=== PATIENT | female | born 1955 | race African-American/Black ===

== ENCOUNTER 2016-06-14 11:54 | Inpatient (IN) | payer MEDICARE, MEDICAID ==
[~2016-06-14] VITALS: Ht 160 cm; Wt 74.8 kg
[~2016-06-14 11:54] MED LIST: ACET-868 PO; ALLO100T PO; AMIN30LI2 PO; AMLO5TAB2 PO; ASPI-991 PO; ATOR40TA PO; BISA10SU8 RC; CARV25TA2 PO; CHOL100044 PO; CINA30TA PO; FOLI0.8T2 PO; GABA-532 PO; HYDR-4076 PO; HYDR-548 PO; HYDR200T4 PO; LACT10SO6 PO; MAGN400O6 PO; MYCO250C8 PO; NA P133E RC; PANT40TA4 PO; PRED5TAB PO; QUET25TA PO; VALA500T35 PO; VALS40TA11 PO
[2016-06-14 12:58] LABS: ANION GAP 18 (5-14); CALCIUM, SERUM 10.4 mg/dL (8.5-10.1); CARBON DIOXIDE 25 mmol/L (21-32); CHLORIDE 97 mmol/L (98-107); CREATININE 3.7 mg/dL (0.6-1.3); GFR 15 mL/min (>60); GLUCOSE 97 mg/dL (74-106); SODIUM SERUM 136 mmol/L (136-145); UREA NITROGEN, BLOOD 22 mg/dL (7-18)
[2016-06-14 13:02] LABS: INR 1.09 (0.87-1.13); PROTHROMBIN TIME 11.4 SECS (9.5-12.7)
[2016-06-14 13:03] LABS: ALANINE AMINOTRANSFERASE 21 U/L (12-78); ALBUMIN 3.5 g/dL (3.4-5.0); ASPARTATE AMINOTRANSFERASE 19 U/L (15-37); BASOPHILS # (AUTO) 0.1 /CMM (0.0-0.2); BASOPHILS % (AUTO) 0.6 % (0.0-2.0); BILIRUBIN,DIRECT 0.2 mg/dL (0.0-0.2); BILIRUBIN,TOTAL 0.6 mg/dL (0.2-1.0); DIFF TOTAL % 100 %; EOSINOPHILS % (AUTO) 0.2 % (0.0-6.0); HEMATOCRIT 37 % (33-45); HEMOGLOBIN 11.9 g/dL (11.5-14.8); INDIRECT BILIRUBIN 0.4 mg/dL (0.0-1.1); LYMPHOCYTES # (AUTO) 0.3 /CMM (0.8-4.8); LYMPHOCYTES % (AUTO) 2.3 % (20.0-44.0); MEAN CORPUSCULAR HEMOGLOBIN 26 PG (26.0-33.0); MEAN CORPUSCULAR HGB CONC 32 g/dl (31.0-36.0); MEAN CORPUSCULAR VOLUME 81 fL (82-100); MONOCYTES # (AUTO) 0.4 /CMM (0.1-1.30); NEUTROPHILS # (AUTO) 11.4 /CMM (1.8-8.9); NEUTROPHILS % (AUTO) 93.9 % (43.0-81.0); PLATELET COUNT (AUTO) 244 /CMM (150-450); RED BLOOD CELL COUNT(AUTO) 4.64 MIL/uL (4.0-5.2); TOTAL PROTEIN, SERUM 9.8 g/dL (6.4-8.2); WHITE BLOOD COUNT (AUTO) 12.2 K/uL (4.3-11.0)
[2016-06-14 13:05] LABS: TROPONIN I < 0.017 ng/mL (0.00-0.056)
[2016-06-14] MEDS ORDERED: IV NS 0.9% 1,000 ML ONE (13:20)
[2016-06-14] MEDS ORDERED: IV SET PRIMARY 1 EA INFUS.SET MC ONE (13:20)
[2016-06-14] MEDS ORDERED: IV NS 0.9% 1,000 ML BAG IV ONE (13:30)
[2016-06-14] MEDS ORDERED: CEFTRIAXONE 1GM BAG (ER ONLY) 50 ML IV ONE ×2 (13:30→13:46)
[2016-06-14 13:37] LABS: LACTIC ACID 2.1 mmol/L (0.4-2.0)
[2016-06-14] MEDS ORDERED: HYDR-552 PO (13:39)
[2016-06-14] MEDS ORDERED: OMEG1CAP PO (13:39)
[2016-06-14] MEDS ORDERED: MULT1TAB11 PO (13:39)
[2016-06-14] MEDS ORDERED: DIVA125T2 PO (13:39)
[2016-06-14] MEDS ORDERED: FERR-58 PO (13:39)
[2016-06-14] MEDS ORDERED: POLY119P2 PO (13:39)
[2016-06-14] MEDS ORDERED: NIFE30TA2 PO (13:39)
[2016-06-14] MEDS ORDERED: SEVE800T8 PO (13:39)
[2016-06-14] MEDS ORDERED: IV SET PRIMARY PUMP SET 1 EA INFUS.SET MC ONE ×3 (13:46→16:39)
[2016-06-14] MEDS ORDERED: AZITHROMYCIN 500 MG in IV D5W 250 ML IV ONE (14:00)
[2016-06-14 14:05] LABS: *LACTIC ACID REFLEX FLAG YES
[2016-06-14 15:00] VITALS: BP 96/59
[2016-06-14] MEDS ORDERED: Z GUARD REMEDY 2 OZ OINT TP PRN ×2 (15:30→18:30)
[2016-06-14 16:00] VITALS: BP_SYST 96; BP_DIAS 55; BP_DIAS 59
[2016-06-14] MEDS ORDERED: IV NS 0.9% 500 ML IV ONE (16:30)
[2016-06-14] MEDS: MORPHINE SULFATE INJ 2 MG/ML DISP.SYRIN IV PRN (18:23)
[2016-06-14] MEDS ORDERED: ONDANSETRON HCL/PF 4 MG/2 ML VIAL IVP PRN (18:30)
[2016-06-14] MEDS ORDERED: MAG HYDROX/AL HYDROX/SIMETH 30 ML UDC PO PRN (18:30)
[2016-06-14] MEDS ORDERED: HYDROCODONE/APAP 5/325MG 1 EACH TABLET PO PRN (18:30)
[2016-06-14] MEDS ORDERED: MAGNESIUM HYDROXIDE 30 ML UDC PO PRN (18:30)
[2016-06-14] MEDS ORDERED: ACETAMINOPHEN 325 MG TABLET PO PRN ×2 (18:30)
[2016-06-14] MEDS ORDERED: HYDROCODONE/APAP 5/325MG 1 EACH TABLET PO SCH (18:30)
[2016-06-14] MEDS ORDERED: ZOLPIDEM TARTRATE 5 MG TABLET PO PRN (18:30)
[2016-06-14] MEDS: CEFTRIAXONE 1 G in IV D5W 50 ML IV SCH (18:30)
[2016-06-14 20:00] VITALS: BP 114/68
[2016-06-14] MEDS ORDERED: POLYETHYLENE GLYCOL 3350 17 GM POWD.PACK PO PRN (20:30)
[2016-06-14] MEDS: HYDROCODONE/APAP 5/325MG 1 EACH TABLET PO PRN (20:46)
[2016-06-14] MEDS: VALSARTAN 40 MG TABLET PO SCH (20:49)
[2016-06-14] MEDS: CARVEDILOL 12.5 MG TABLET PO SCH (20:50)
[2016-06-14] MEDS ORDERED: ATORVASTATIN 40 MG TABLET PO SCH (22:00)
[2016-06-15] VITALS: BP 115/59
[2016-06-15 04:00] VITALS: BP 136/57
[2016-06-15 07:40] LABS: HEMATOCRIT 30 % (33-45); HEMOGLOBIN 9.2 g/dL (11.5-14.8); MEAN CORPUSCULAR HEMOGLOBIN 25 PG (26.0-33.0); MEAN CORPUSCULAR HGB CONC 30 g/dl (31.0-36.0); MEAN CORPUSCULAR VOLUME 83 fL (82-100); PLATELET COUNT (AUTO) 212 /CMM (150-450); RED BLOOD CELL COUNT(AUTO) 3.65 MIL/uL (4.0-5.2); WHITE BLOOD COUNT (AUTO) 17.4 K/uL (4.3-11.0)
[2016-06-15 08:00] VITALS: BP 96/45
[2016-06-15] MEDS: CHOLECALCIFEROL 1,000 UNIT TABLET (VIT D3) PO SCH (08:08)
[2016-06-15] MEDS: predniSONE 5 MG TABLET PO SCH (08:09)
[2016-06-15] MEDS: VALSARTAN 40 MG TABLET PO SCH ×2 (08:09→20:58)
[2016-06-15] MEDS: FERROUS SULFATE (325 MG) 325 MG/TAB TABLET PO SCH (08:09)
[2016-06-15] MEDS: GABAPENTIN 100 MG CAPSULE PO SCH ×2 (08:09→17:11)
[2016-06-15] MEDS: DIVALPROEX SODIUM 125 MG TABLET.DR PO SCH ×2 (08:09→17:12)
[2016-06-15] MEDS: MYCOPHENOLATE MOFETIL 250 MG CAPSULE PO SCH ×2 (08:09→17:10)
[2016-06-15] MEDS: SEVELAMER CARBONATE 800 MG TABLET PO SCH ×3 (08:09→17:08)
[2016-06-15] MEDS: ASPIRIN EC 81 MG TABLET.DR PO SCH (08:09)
[2016-06-15] MEDS: CINACALCET HCL 30 MG TABLET PO SCH (08:09)
[2016-06-15] MEDS: CARVEDILOL 12.5 MG TABLET PO SCH ×2 (08:10→20:58)
[2016-06-15] MEDS: HYDROXYCHLOROQUINE 200 MG TABLET PO SCH (08:10)
[2016-06-15] MEDS: hydrALAZINE HCL 25 MG TABLET PO SCH (08:10)
[2016-06-15] MEDS: AMLODIPINE BESYLATE 5 MG TABLET PO SCH (08:10)
[2016-06-15] MEDS: PANTOPRAZOLE 40 MG TABLET.DR PO SCH (08:10)
[2016-06-15] MEDS: MULTIVITAMINS W-MINERALS 1 TAB TABLET PO SCH (08:10)
[2016-06-15] MEDS: HYDROCODONE/APAP 5/325MG 1 EACH TABLET PO PRN ×2 (08:11→14:32)
[2016-06-15] MEDS ORDERED: NIFEdipine XL (30MG) 30 MG TAB PO SCH (09:00)
[2016-06-15] MEDS ORDERED: Medication Not On Formulary EA (Omega-3 Fatty Acids/Fish Oil (Fish Oil 1,000 Mg Capsule) PO SCH (09:00)
[2016-06-15 09:31] LABS: CALCIUM, SERUM 9.4 mg/dL (8.5-10.1); CREATININE 5.3 mg/dL (0.6-1.3); POTASSIUM 5.2 mmol/L (3.5-5.1)
[2016-06-15] MEDS ORDERED: Z GUARD REMEDY 2 OZ OINT TP PRN (10:00)
[2016-06-15 10:31] LABS: ANISOCYTOSIS 1+; BAND % (MANUAL) 8 % (0.0-5.0); EOSINOPHILS % (MANUAL) 1 % (0-4); HYPOCHROMASIA 2+; LYMPHOCYTES % (MANUAL) 10 % (16-48); PLATELET ESTIMATE ADEQUATE
[2016-06-15 10:32] LABS: SCHISTOCYTES 1+
[2016-06-15 12:00] VITALS: BP 96/51
[2016-06-15 12:55] LABS: TROPONIN I 0.081 ng/mL (0.00-0.056)
[2016-06-15 13:39] LABS: THYROID STIMULATING HORMONE 0.804 uIU/mL (0.358-3.74)
[2016-06-15] MEDS ORDERED: SECONDARY IV SET 1 EA INFUS.SET MC ONE ×2 (15:30→17:07)
[2016-06-15 16:00] VITALS: BP 81/46
[2016-06-15 16:32] LABS: LACTIC ACID 0.6 mmol/L (0.4-2.0)
[2016-06-15 16:46] LABS: TROPONIN I 0.103 ng/mL (0.00-0.056)
[2016-06-15] MEDS: CEFTRIAXONE 1 G in IV D5W 50 ML IV SCH (17:10)
[2016-06-15] MEDS: Z GUARD REMEDY 2 OZ OINT TP SCH (17:11)
[2016-06-15] MEDS: ALBUMIN 25% 25 GM in PREMIX 1 EA IV PRN (17:24)
[2016-06-15] MEDS ORDERED: AZITHROMYCIN 500 MG in IV D5W 250 ML IV SCH (18:30)
[2016-06-15] MEDS ORDERED: IV NS 0.9% 250 ML IV ONE (18:32)
[2016-06-15 20:00] VITALS: BP 99/50
[2016-06-15] MEDS: HEPARIN SODIUM, PORCINE 5000 UNITS/1 ML VIAL SQ SCH (20:51)
[2016-06-16] VITALS: BP 118/59
[2016-06-16 04:00] VITALS: BP 118/33
[2016-06-16 07:52] LABS: HEMATOCRIT 26 % (33-45); HEMOGLOBIN 8.1 g/dL (11.5-14.8); MEAN CORPUSCULAR HEMOGLOBIN 25 PG (26.0-33.0); MEAN CORPUSCULAR HGB CONC 31 g/dl (31.0-36.0); MEAN CORPUSCULAR VOLUME 83 fL (82-100); PLATELET COUNT (AUTO) 184 /CMM (150-450); RED BLOOD CELL COUNT(AUTO) 3.18 MIL/uL (4.0-5.2); WHITE BLOOD COUNT (AUTO) 13.3 K/uL (4.3-11.0)
[2016-06-16 07:53] LABS: ALBUMIN 3.2 g/dL (3.4-5.0); BILIRUBIN,TOTAL 0.5 mg/dL (0.2-1.0); CALCIUM, SERUM 9.1 mg/dL (8.5-10.1); CREATININE 4.2 mg/dL (0.6-1.3); PHOSPHORUS 4.2 mg/dL (2.5-4.9)
[2016-06-16 08:00] VITALS: BP 110/59
[2016-06-16] MEDS: hydrALAZINE HCL 25 MG TABLET PO SCH (08:37)
[2016-06-16] MEDS: VALSARTAN 40 MG TABLET PO SCH ×2 (09:00→20:49)
[2016-06-16] MEDS: AMLODIPINE BESYLATE 5 MG TABLET PO SCH (09:00)
[2016-06-16] MEDS: CARVEDILOL 12.5 MG TABLET PO SCH ×2 (09:00→20:49)
[2016-06-16] MEDS ORDERED: SECONDARY IV SET 1 EA INFUS.SET MC ONE (09:07)
[2016-06-16] MEDS: CHOLECALCIFEROL 1,000 UNIT TABLET (VIT D3) PO SCH (09:11)
[2016-06-16] MEDS: MULTIVITAMINS W-MINERALS 1 TAB TABLET PO SCH (09:11)
[2016-06-16] MEDS: predniSONE 5 MG TABLET PO SCH (09:12)
[2016-06-16] MEDS: FERROUS SULFATE (325 MG) 325 MG/TAB TABLET PO SCH (09:12)
[2016-06-16] MEDS: ASPIRIN EC 81 MG TABLET.DR PO SCH (09:12)
[2016-06-16] MEDS: CINACALCET HCL 30 MG TABLET PO SCH (09:12)
[2016-06-16] MEDS: PANTOPRAZOLE 40 MG TABLET.DR PO SCH (09:13)
[2016-06-16] MEDS: DIVALPROEX SODIUM 125 MG TABLET.DR PO SCH ×2 (09:13→17:14)
[2016-06-16] MEDS: MYCOPHENOLATE MOFETIL 250 MG CAPSULE PO SCH ×2 (09:13→17:14)
[2016-06-16] MEDS: GABAPENTIN 100 MG CAPSULE PO SCH ×2 (09:13→17:13)
[2016-06-16] MEDS: SEVELAMER CARBONATE 800 MG TABLET PO SCH ×3 (09:13→17:13)
[2016-06-16] MEDS: HYDROXYCHLOROQUINE 200 MG TABLET PO SCH (09:13)
[2016-06-16] MEDS: PIPERACILLIN /TAZOBACTAM 2.25 G in IV D5W 50 ML IV SCH ×2 (09:14→17:13)
[2016-06-16] MEDS: Z GUARD REMEDY 2 OZ OINT TP SCH ×2 (09:14→17:15)
[2016-06-16] MEDS: HEPARIN SODIUM, PORCINE 5000 UNITS/1 ML VIAL SQ SCH ×2 (09:16→21:23)
[2016-06-16 10:09] LABS: BAND % (MANUAL) 3 % (0.0-5.0); EOSINOPHILS % (MANUAL) 1 % (0-4); LYMPHOCYTES % (MANUAL) 7 % (16-48)
[2016-06-16 10:10] LABS: ANISOCYTOSIS 2+; HYPOCHROMASIA 2+
[2016-06-16 10:11] LABS: PLATELET ESTIMATE ADEQUATE
[2016-06-16] MEDS: HYDROCODONE/APAP 5/325MG 1 EACH TABLET PO PRN ×2 (13:12→21:24)
[2016-06-16 16:00] VITALS: BP 102/61
[2016-06-16] MEDS ORDERED: FEE PK DOSING 1 MIN EA MC ONE (16:38)
[2016-06-16] MEDS ORDERED: VANCOMYCIN 1 GM in IV D5W 250 ML IV PRN (17:00)
[2016-06-16 20:00] VITALS: BP 104/30
[2016-06-17] MEDS: PIPERACILLIN /TAZOBACTAM 2.25 G in IV D5W 50 ML IV SCH ×3 (00:27→17:38)
[2016-06-17] MEDS ORDERED: GUAIFENESIN/D-METHORPHAN HB 5 ML UDC ONE ×2 (00:44→06:48)
[2016-06-17] MEDS: GUAIFENESIN/D-METHORPHAN HB 5 ML UDC PO PRN ×3 (00:50→17:50)
[2016-06-17] MEDS: HYDROCODONE/APAP 5/325MG 1 EACH TABLET PO PRN ×4 (01:29→17:53)
[2016-06-17 04:00] VITALS: BP 98/70
[2016-06-17 08:00] VITALS: BP_SYST 101; BP_DIAS 37; BP_DIAS 97
[2016-06-17] MEDS: FERROUS SULFATE (325 MG) 325 MG/TAB TABLET PO SCH (08:08)
[2016-06-17] MEDS: MYCOPHENOLATE MOFETIL 250 MG CAPSULE PO SCH ×2 (08:09→17:37)
[2016-06-17] MEDS: CINACALCET HCL 30 MG TABLET PO SCH (08:09)
[2016-06-17] MEDS: HYDROXYCHLOROQUINE 200 MG TABLET PO SCH (08:09)
[2016-06-17] MEDS: MULTIVITAMINS W-MINERALS 1 TAB TABLET PO SCH (08:09)
[2016-06-17] MEDS: DIVALPROEX SODIUM 125 MG TABLET.DR PO SCH ×2 (08:10→17:37)
[2016-06-17] MEDS: ASPIRIN EC 81 MG TABLET.DR PO SCH (08:10)
[2016-06-17] MEDS: PANTOPRAZOLE 40 MG TABLET.DR PO SCH (08:10)
[2016-06-17] MEDS: SEVELAMER CARBONATE 800 MG TABLET PO SCH ×3 (08:10→17:37)
[2016-06-17] MEDS: predniSONE 5 MG TABLET PO SCH (08:10)
[2016-06-17] MEDS: GABAPENTIN 100 MG CAPSULE PO SCH ×2 (08:10→17:37)
[2016-06-17] MEDS: CHOLECALCIFEROL 1,000 UNIT TABLET (VIT D3) PO SCH (08:11)
[2016-06-17] MEDS: hydrALAZINE HCL 25 MG TABLET PO SCH (08:13)
[2016-06-17] MEDS: CARVEDILOL 12.5 MG TABLET PO SCH ×2 (08:14→20:48)
[2016-06-17] MEDS: AMLODIPINE BESYLATE 5 MG TABLET PO SCH (08:14)
[2016-06-17] MEDS: VALSARTAN 40 MG TABLET PO SCH ×2 (08:14→20:49)
[2016-06-17] MEDS: Z GUARD REMEDY 2 OZ OINT TP SCH ×2 (08:15→17:39)
[2016-06-17] MEDS: HEPARIN SODIUM, PORCINE 5000 UNITS/1 ML VIAL SQ SCH ×2 (08:32→21:24)
[2016-06-17 12:00] VITALS: BP_SYST 112; BP_DIAS 31; BP_DIAS 39
[2016-06-17] MEDS: MORPHINE SULFATE INJ 2 MG/ML DISP.SYRIN IV PRN (13:45)
[2016-06-17 16:00] VITALS: BP_SYST 103; BP_SYST 128; BP_DIAS 39; BP_DIAS 72
[2016-06-17] MEDS ORDERED: MORPHINE SULFATE INJ 2 MG/ML DISP.SYRIN IV PRN (18:30)
[2016-06-17 19:11] LABS: BASOPHILS # (AUTO) 0.1 /CMM (0.0-0.2); BASOPHILS % (AUTO) 1.1 % (0.0-2.0); DIFF TOTAL % 100 %; EOSINOPHILS # (AUTO) 0.2 /CMM (0.0-0.7); EOSINOPHILS % (AUTO) 2.6 % (0.0-6.0); HEMATOCRIT 26 % (33-45); LYMPHOCYTES # (AUTO) 0.5 /CMM (0.8-4.8); LYMPHOCYTES % (AUTO) 6.1 % (20.0-44.0); MEAN CORPUSCULAR HEMOGLOBIN 26 PG (26.0-33.0); MEAN CORPUSCULAR HGB CONC 32 g/dl (31.0-36.0); MEAN CORPUSCULAR VOLUME 82 fL (82-100); MONOCYTES # (AUTO) 0.3 /CMM (0.1-1.30); MONOCYTES % (AUTO) 3.2 % (2.0-12.0); NEUTROPHILS # (AUTO) 7.2 /CMM (1.8-8.9); PLATELET COUNT (AUTO) 168 /CMM (150-450); RED BLOOD CELL COUNT(AUTO) 3.13 MIL/uL (4.0-5.2); WHITE BLOOD COUNT (AUTO) 8.3 K/uL (4.3-11.0)
[2016-06-17 19:18] LABS: CALCIUM, SERUM 8.5 mg/dL (8.5-10.1); CREATININE 7.4 mg/dL (0.6-1.3); PHOSPHORUS 5.5 mg/dL (2.5-4.9); POTASSIUM 5.9 mmol/L (3.5-5.1)
[2016-06-17 20:00] VITALS: BP 104/59
[2016-06-18] MEDS: PIPERACILLIN /TAZOBACTAM 2.25 G in IV D5W 50 ML IV SCH ×3 (01:40→16:13)
[2016-06-18 04:00] VITALS: BP 105/56
[2016-06-18] MEDS ORDERED: VANCOMYCIN 500 MG in IV D5W 100 ML IV PRN (06:00)
[2016-06-18 07:42] LABS: HEMATOCRIT 30 % (33-45); HEMOGLOBIN 9.2 g/dL (11.5-14.8); MEAN CORPUSCULAR HEMOGLOBIN 26 PG (26.0-33.0); MEAN CORPUSCULAR HGB CONC 31 g/dl (31.0-36.0); MEAN CORPUSCULAR VOLUME 82 fL (82-100); PLATELET COUNT (AUTO) 174 /CMM (150-450); WHITE BLOOD COUNT (AUTO) 9.1 K/uL (4.3-11.0)
[2016-06-18 07:59] LABS: CREATININE 5.8 mg/dL (0.6-1.3); PHOSPHORUS 4.2 mg/dL (2.5-4.9); POTASSIUM 4.7 mmol/L (3.5-5.1)
[2016-06-18 08:00] VITALS: BP_SYST 140; BP_SYST 143; BP_DIAS 93
[2016-06-18] MEDS: PANTOPRAZOLE 40 MG TABLET.DR PO SCH (08:01)
[2016-06-18] MEDS: predniSONE 5 MG TABLET PO SCH (08:01)
[2016-06-18] MEDS: MYCOPHENOLATE MOFETIL 250 MG CAPSULE PO SCH ×2 (08:02→16:13)
[2016-06-18] MEDS: MULTIVITAMINS W-MINERALS 1 TAB TABLET PO SCH (08:02)
[2016-06-18] MEDS: GABAPENTIN 100 MG CAPSULE PO SCH ×2 (08:02→16:13)
[2016-06-18] MEDS: CINACALCET HCL 30 MG TABLET PO SCH (08:02)
[2016-06-18] MEDS: FERROUS SULFATE (325 MG) 325 MG/TAB TABLET PO SCH (08:02)
[2016-06-18] MEDS: HYDROXYCHLOROQUINE 200 MG TABLET PO SCH (08:02)
[2016-06-18] MEDS: DIVALPROEX SODIUM 125 MG TABLET.DR PO SCH ×2 (08:02→16:13)
[2016-06-18] MEDS: CHOLECALCIFEROL 1,000 UNIT TABLET (VIT D3) PO SCH (08:02)
[2016-06-18] MEDS: ASPIRIN EC 81 MG TABLET.DR PO SCH (08:02)
[2016-06-18] MEDS: SEVELAMER CARBONATE 800 MG TABLET PO SCH ×3 (08:02→17:50)
[2016-06-18] MEDS: HYDROCODONE/APAP 5/325MG 1 EACH TABLET PO PRN ×3 (08:03→17:50)
[2016-06-18] MEDS: VALSARTAN 40 MG TABLET PO SCH (08:04)
[2016-06-18] MEDS: AMLODIPINE BESYLATE 5 MG TABLET PO SCH (08:04)
[2016-06-18] MEDS: hydrALAZINE HCL 25 MG TABLET PO SCH (08:04)
[2016-06-18] MEDS: CARVEDILOL 12.5 MG TABLET PO SCH (08:05)
[2016-06-18] MEDS: Z GUARD REMEDY 2 OZ OINT TP SCH ×2 (08:06→16:16)
[2016-06-18] MEDS: HEPARIN SODIUM, PORCINE 5000 UNITS/1 ML VIAL SQ SCH (08:25)
[2016-06-18 09:43] LABS: EOSINOPHILS % (MANUAL) 5 % (0-4); LYMPHOCYTES % (MANUAL) 10 % (16-48)
[2016-06-18 09:44] LABS: ANISOCYTOSIS 1+; HYPOCHROMASIA 1+; PLATELET ESTIMATE ADEQUATE
[2016-06-18] MEDS ORDERED: IV SET PRIMARY PUMP SET 1 EA INFUS.SET MC ONE (11:48)
[2016-06-18] MEDS ORDERED: SECONDARY IV SET 1 EA INFUS.SET MC ONE (11:48)
[2016-06-18] MEDS ORDERED: IV NS 0.9% 250 ML IV ONE (11:48)
[2016-06-18] MEDS: GUAIFENESIN/D-METHORPHAN HB 5 ML UDC PO PRN (12:49)
[2016-06-18] MEDS ORDERED: Heparin Sodium,Porcine SQ (15:51)
[2016-06-18] MEDS ORDERED: PIPE2.257 IV (15:58)
[2016-06-18 16:00] VITALS: BP 101/80
== END 2016-06-18 19:08 | DRG 871 ==
LOC: ER 11:56 → TELE1 13:45 → MEDSG1 06-15 12:54
PROVIDERS: ADMIT Family Medicine; ATTEND Family Medicine
PROC: 5A1D60Z (ICD-10-PCS; principal; 2016-06-15)
DX: A41.9 Sepsis, unspecified organism (principal); N18.6 End stage renal disease; J15.4 Pneumonia due to other streptococci; G93.41 Metabolic encephalopathy; I21.4 Non-ST elevation (NSTEMI) myocardial infarction; E87.2 Acidosis; J98.11 Atelectasis; I12.0 Hypertensive chronic kidney disease with stage 5 chronic kidney disease or end stage renal disease; K80.00 Calculus of gallbladder with acute cholecystitis without obstruction; Z99.2 Dependence on renal dialysis; M10.9 Gout, unspecified; Z96.649 Presence of unspecified artificial hip joint; K21.9 Gastro-esophageal reflux disease without esophagitis; D63.8 Anemia in other chronic diseases classified elsewhere; M19.90 Unspecified osteoarthritis, unspecified site; E87.5 Hyperkalemia; M32.9 Systemic lupus erythematosus, unspecified; Z85.3 Personal history of malignant neoplasm of breast
CPT/HCPCS: 36415; 71010-TC; 80048-TC; 80053-TC; 80061-TC; 80076-TC; 82150-TC; 83605-TC; 83735-TC; 84100-TC; 84439-TC; 84443-TC; 84484-TC; 85025-TC; 85730-TC; 87040-TC; 87081-TC; 87186-TC; 90935-TC; 92611-TC; 93307-TC; 94799-TC; A4216; A4606; A6403; J0456; J0696; J1644; J2270; J2543; J3370; J7030; J7040; J7050; J7060; J7512; J7517; P9047; Z7610

== ENCOUNTER 2016-11-05 11:39 | Inpatient (IN) | payer MEDICARE, MEDICAID ==
[~2016-11-05] VITALS: Ht 154.9 cm; Wt 68.5 kg
[~2016-11-05 11:39] MED LIST changes: -AMIN30LI2 PO; -BISA10SU8 RC; +DIVA125T2 PO; +FERR-58 PO; -FOLI0.8T2 PO; -HYDR-548 PO; +HYDR-552 PO; +Heparin Sodium,Porcine SQ; -LACT10SO6 PO; -MAGN400O6 PO; +MULT1TAB11 PO; -NA P133E RC; +NIFE30TA2 PO; +OMEG1CAP PO; +PIPE2.257 IV; +POLY119P2 PO; -QUET25TA PO; +SEVE800T8 PO; -VALA500T35 PO
--- NOTE | 2016-11-05 11:57 | NUR ---
PT FABIANA MERAZ FROM DIALYSIS FOR PORT MALFUNCTION, PATIENT DID NOT RECEIVE DIALYSIS TODAY. GOWNED PT . AWAITING MD ORDER
[2016-11-05 12:00] VITALS: BP 147/69
--- NOTE | 2016-11-05 12:10 | NUR ---
SARAHY #20 IV ACCESS . BLOOD SAMPLE COLLECTED SENT TO LAB
--- NOTE | 2016-11-05 12:17 | NUR ---
senior technical architect at bedside
[2016-11-05 12:25] LABS: BASOPHILS # (AUTO) 0.2 /CMM (0.0-0.2); BASOPHILS % (AUTO) 3.3 % (0.0-2.0); EOSINOPHILS # (AUTO) 0.1 /CMM (0.0-0.7); EOSINOPHILS % (AUTO) 1.8 % (0.0-6.0); HEMATOCRIT 40 % (33-45); HEMOGLOBIN 11.9 g/dL (11.5-14.8); LYMPHOCYTES # (AUTO) 1.1 /CMM (0.8-4.8); LYMPHOCYTES % (AUTO) 21.9 % (20.0-44.0); MEAN CORPUSCULAR HEMOGLOBIN 25 PG (26.0-33.0); MEAN CORPUSCULAR HGB CONC 30 g/dl (31.0-36.0); MEAN CORPUSCULAR VOLUME 82 fL (82-100); MONOCYTES # (AUTO) 0.5 /CMM (0.1-1.30); MONOCYTES % (AUTO) 10.1 % (2.0-12.0); NEUTROPHILS % (AUTO) 62.9 % (43.0-81.0); PLATELET COUNT (AUTO) 161 /CMM (150-450); RDW COEFFICIENT OF VARIATION 18.4 (11.5-15.0); RED BLOOD CELL COUNT(AUTO) 4.85 MIL/uL (4.0-5.2); WHITE BLOOD COUNT (AUTO) 4.9 K/uL (4.3-11.0)
[2016-11-05 12:37] LABS: INR 1.09 (0.87-1.13); PROTHROMBIN TIME 11.3 SECS (9.5-12.7)
[2016-11-05] MEDS ORDERED: HYDROCODONE/APAP 5/325MG 1 EACH TABLET ONE (12:40)
[2016-11-05] MEDS ORDERED: ONDANSETRON 4 MG TAB.RAPDIS ONE (12:41)
[2016-11-05] MEDS ORDERED: ONDANSETRON 4 MG TAB.RAPDIS PO ONE (13:00)
[2016-11-05] MEDS ORDERED: HYDROCODONE/APAP 5/325MG 1 EACH TABLET PO ONE (13:00)
--- NOTE | 2016-11-05 13:06 | NUR ---
CALLED [facility] NEPHROLOGY TEMPLATE STORAGE CLERK DR HADLEY WAS PAGED.
[2016-11-05 13:16] LABS: ALBUMIN 3.6 g/dL (3.4-5.0); BILIRUBIN,DIRECT 0.1 mg/dL (0.0-0.2); BILIRUBIN,TOTAL 0.3 mg/dL (0.2-1.0); CALCIUM, SERUM 8.2 mg/dL (8.5-10.1); POTASSIUM 5.4 mmol/L (3.5-5.1); TOTAL PROTEIN, SERUM 8.3 g/dL (6.4-8.2)
[2016-11-05 13:20] LABS: CREATININE 9.5 mg/dL (0.6-1.3)
--- NOTE | 2016-11-05 13:52 | NUR ---
GAVE REPORT TO [place] RN ROOM 118-[address] ERNIE HADLEY ADMITTING.
[2016-11-05] MEDS ORDERED: ATOR10TA PO (14:20)
[2016-11-05] MEDS ORDERED: HYDR-552 PO (14:20)
[2016-11-05] MEDS ORDERED: NA P133E RC (14:20)
[2016-11-05] MEDS ORDERED: HEPA10009 SQ (14:20)
[2016-11-05] MEDS ORDERED: BISA10SU8 RC (14:20)
[2016-11-05] MEDS ORDERED: FOLI0.8T2 PO (14:20)
[2016-11-05] MEDS ORDERED: MAGN400O6 PO (14:20)
--- NOTE | 2016-11-05 14:21 | NUR ---
UPDATE TRANSFER TELE VIA [facility]
[2016-11-05] MEDS ORDERED: SODIUM POLYSTYRENE SULFONATE 15 G/60 ML BOTTLE PO ONE (15:30)
[2016-11-05 16:00] VITALS: BP 120/71
--- NOTE | 2016-11-05 16:00 | NUR ---
PT. admitted from E.R FOR LEFT AV shunt malfunction.no c/o pain,A/O X3 ABLE TO VERBALIZE NEEDS.NO C/O PAIN.NO S/S OF DISTRESS.BREATHING EVEN AND UNLABORED.SAFETY MEASURES IN PLACE.BED IN LOW AND LOCKED POSITION.WILL CONTINUE TO MONITOR FOR CHANGES.PT IS SCHEDULED FOR THROMBOLECTOMY PROCEDURE ON 11/06/16 AT 11 AM.CONSENT SIGNED BY PATIENT.
[2016-11-05] MEDS ORDERED: MAGNESIUM HYDROXIDE 30 ML UDC PO PRN (18:30)
[2016-11-05] MEDS ORDERED: NA PHOS,M-B/NA PHOS,DI-BA 1 EA ENEMA RC PRN (18:30)
[2016-11-05] MEDS ORDERED: BISACODYL SUPP (10 MG) 10 MG/SUPP.RECT SUPP.RECT RC PRN (18:30)
[2016-11-05] MEDS ORDERED: ACETAMINOPHEN 325 MG TABLET PO PRN (18:30)
[2016-11-05] MEDS ORDERED: hydrALAZINE HCL 25 MG TABLET PO PRN (18:30)
[2016-11-05] MEDS: HYDROCODONE/APAP 5/325MG 1 EACH TABLET PO PRN (19:05)
--- NOTE | 2016-11-05 19:27 | NUR ---
TELE-1/AIR VALVE MECHANIC RECEIVED PT AWAKE IN BED EATING DINNER PT IS VERBALLY AGGRESSIVE AND SWEARING AT ME AND AXILLARY STAFF. PT TREATED FOR PAIN AND NAUSEA PER HER REQUEST. WILL CONTINUE TO MONITOR.
[2016-11-05] MEDS ORDERED: ONDANSETRON HCL/PF 4 MG/2 ML VIAL IV PRN (19:30)
[2016-11-05 20:00] VITALS: BP 120/60
[2016-11-05] MEDS: HEPARIN SODIUM, PORCINE 5000 UNITS/1 ML VIAL SQ SCH (21:00)
[2016-11-05] MEDS: CARVEDILOL 12.5 MG TABLET PO SCH (21:00)
[2016-11-05] MEDS: VALSARTAN 40 MG TABLET PO SCH (21:00)
[2016-11-05] MEDS: NIFEdipine XL (30MG) 30 MG TAB PO SCH (21:00)
[2016-11-05] MEDS: ATORVASTATIN 10 MG TABLET PO SCH (22:00)
[2016-11-06] VITALS: BP 153/82
[2016-11-06] MEDS: HYDROCODONE/APAP 5/325MG 1 EACH TABLET PO PRN (01:48)
[2016-11-06 04:00] VITALS: BP 166/85
[2016-11-06 06:45] LABS: INR 1.06 (0.87-1.13); PROTHROMBIN TIME 11.4 SECS (9.5-12.7)
[2016-11-06 06:51] LABS: HEMATOCRIT 37 % (33-45); HEMOGLOBIN 11.6 g/dL (11.5-14.8); MEAN CORPUSCULAR HEMOGLOBIN 26 PG (26.0-33.0); MEAN CORPUSCULAR HGB CONC 32 g/dl (31.0-36.0); MEAN CORPUSCULAR VOLUME 83 fL (82-100); PLATELET COUNT (AUTO) 134 /CMM (150-450); RDW COEFFICIENT OF VARIATION 18.9 (11.5-15.0); RED BLOOD CELL COUNT(AUTO) 4.43 MIL/uL (4.0-5.2); WHITE BLOOD COUNT (AUTO) 4.1 K/uL (4.3-11.0)
[2016-11-06 07:04] LABS: ALBUMIN 3.3 g/dL (3.4-5.0); BILIRUBIN,TOTAL 0.3 mg/dL (0.2-1.0); CALCIUM, SERUM 8.1 mg/dL (8.5-10.1); MAGNESIUM 2.7 mg/dL (1.8-2.4); TOTAL PROTEIN, SERUM 7.9 g/dL (6.4-8.2)
[2016-11-06] MEDS: PANTOPRAZOLE 40 MG TABLET.DR PO SCH (07:30)
[2016-11-06 08:00] VITALS: BP 96/31
[2016-11-06 08:08] LABS: PHOSPHORUS 9.1 mg/dL (2.5-4.9)
[2016-11-06 08:10] LABS: CREATININE 10.3 mg/dL (0.6-1.3)
[2016-11-06] MEDS ORDERED: IV SET PRIMARY 1 EA INFUS.SET MC ONE (08:23)
[2016-11-06] MEDS ORDERED: IV D5W 1,000 ML IV ONE (08:30)
--- NOTE | 2016-11-06 08:33 | NUR ---
RN NOTE RECEIVED PATIENT @ 0730, A+O X3, VERBALIZING NEEDS, PAIN IN RLE, CHRONIC. NO CHEST PAIN, NO SOB. PRE-OP ASSESSMENT REVEALING BLOOD SUGAR 61- MD DR. Robert HADLEY PERFORMING SURGERY THIS MORNING GAVE TELEPHONE ORDER FOR D5W IV WIDE OPEN. HUNG BAG AND HANDED PATIENT OFF TO EUGENIA RN IN OR. PRO-OP CHECKLIST, CONSENT SIGNED. DR. HADLEY AWARE OF ALL RECENT LAB RESULTS.
[2016-11-06 08:34] LABS: BAND % (MANUAL) 2 % (0.0-5.0); EOSINOPHILS % (MANUAL) 3 % (0-4); LYMPHOCYTES % (MANUAL) 17 % (16-48); MONOCYTES % (MANUAL) 11 % (0-11.0); NEUTROPHILS % (MANUAL) 67 (42-76)
[2016-11-06] MEDS ORDERED: FENTANYL PF 100MCG/2ML AMPUL ONE (08:37)
[2016-11-06] MEDS ORDERED: HEPARIN SODIUM, PORCINE 1,000 UNIT/ML VIAL ONE (08:40)
[2016-11-06] MEDS ORDERED: LIDOCAINE HCL/PF 1% 30 ML SDV ONE (08:40)
[2016-11-06] MEDS: AMLODIPINE BESYLATE 5 MG TABLET PO SCH (09:00)
[2016-11-06] MEDS ORDERED: Medication Not On Formulary EA (Omega-3 Fatty Acids/Fish Oil (Fish Oil 1,000 Mg Capsule) PO SCH (09:00)
[2016-11-06] MEDS: ASPIRIN EC 81 MG TABLET.DR PO SCH (09:00)
[2016-11-06] MEDS ORDERED: SODIUM POLYSTYRENE SULFONATE 15 G/60 ML BOTTLE PO ONE (09:00)
[2016-11-06] MEDS: VALSARTAN 40 MG TABLET PO SCH ×2 (09:00→21:00)
--- NOTE | 2016-11-06 10:45 | NUR ---
Returned from surgery at this time bp 118/64, hr 85, t 98, o2 100%, 0/10 pain. no bleeding at R chest wall new HD Perma cath c/d/i, ok to use for dialysis per MD.. MD said to resume diet. orders faxed to pharmacy. order for R arm vein mapping and R arm arterial doppler. sign for no iv or blood draw on R above bed. OR nurse gave report of BS 77. call light in reach. LOC unchanged fro start of shift- stable, verbalizes needs, breathing even and unlabored.
[2016-11-06] MEDS: CHOLECALCIFEROL 1,000 UNIT TABLET (VIT D3) PO SCH (11:52)
[2016-11-06] MEDS: MYCOPHENOLATE MOFETIL 250 MG CAPSULE PO SCH ×2 (11:52→16:19)
[2016-11-06] MEDS: CINACALCET HCL 30 MG TABLET PO SCH (11:53)
[2016-11-06] MEDS: GABAPENTIN 100 MG CAPSULE PO SCH ×2 (11:53→16:19)
[2016-11-06] MEDS: predniSONE 5 MG TABLET PO SCH (11:53)
[2016-11-06] MEDS: SEVELAMER CARBONATE 800 MG TABLET PO SCH ×3 (11:54→16:19)
[2016-11-06] MEDS: ALLOPURINOL 100 MG TABLET PO SCH (11:54)
[2016-11-06] MEDS: HYDROXYCHLOROQUINE 200 MG TABLET PO SCH (11:54)
[2016-11-06] MEDS: HYDROCODONE/APAP 5/325MG 1 EACH TABLET PO SCH ×2 (11:54→16:19)
[2016-11-06] MEDS: VIT B CMPLX 3/FA/VIT C/BIOTIN 1 TAB TABLET PO SCH ×2 (11:55→16:19)
[2016-11-06] MEDS: DIVALPROEX SODIUM 125 MG TABLET.DR PO SCH ×2 (11:55→16:17)
[2016-11-06] MEDS: FERROUS SULFATE (325 MG) 325 MG/TAB TABLET PO SCH (11:55)
[2016-11-06] MEDS: CARVEDILOL 12.5 MG TABLET PO SCH ×2 (11:56→21:27)
[2016-11-06] MEDS: HEPARIN SODIUM, PORCINE 5000 UNITS/1 ML VIAL SQ SCH ×2 (11:59→21:28)
[2016-11-06] MEDS: NIFEdipine XL (30MG) 30 MG TAB PO SCH ×2 (11:59→21:00)
[2016-11-06 12:00] VITALS: BP 98/46
[2016-11-06] MEDS ORDERED: SECONDARY IV SET 1 EA INFUS.SET MC ONE (15:14)
[2016-11-06] MEDS ORDERED: IV SET PRIMARY PUMP SET 1 EA INFUS.SET MC ONE (15:16)
[2016-11-06] MEDS ORDERED: IV NS 0.9% 250 ML IV ONE (15:16)
[2016-11-06] MEDS: ANCEF 1 GM/50 ML D5W IV SCH ×4 (15:32→22:42)
[2016-11-06 16:00] VITALS: BP 106/35
--- NOTE | 2016-11-06 18:40 | NUR ---
RN NOTE WOUND CARE CONSULT ORDERED R/T R MEDIAL OPEN WOUND FOUND DURING THIS SHIFT. PATIENT STATES SHE IS AWARE OF THE WOUND BEING PRESENT BEFORE ADMISSION.
--- NOTE | 2016-11-06 19:30 | NUR ---
SALVAGE WORKER INITIAL NOTES RECEIVED PATIENT AWAKE A/OX4, ABLE TO MAKE NEEDS KNOWN. DENIES PAIN OR DISCOMFORT AT THIS TIME. DENIES SOB. RESPIRATIONS EVEN AND UNLABORED ON ROOM AIR. S/P RCW HD CATH PLACEMENT, NO BLEEDING NOTED, INTACT. ON TELE MONITOR ST. SKIN WARM AND DRY TO TOUCH. HOB ELEVATED. SIDE RAILS UP AND LOCKED. BED KEPT AT LOWEST POSITION. CALL LIGHT KEPT WITHIN EASY REACH. WILL CONTINUE TO MONITOR.
[2016-11-06 20:00] VITALS: BP 136/77
--- NOTE | 2016-11-06 21:00 | NUR ---
MAEVE AND JACINTO HELD AT THIS TIME, BP 118/43 ON LEFT CALF. CARVEDILOL GIVEN, WILL CONTINUE TO MONITOR.
[2016-11-06] MEDS: ATORVASTATIN 10 MG TABLET PO SCH (21:27)
--- NOTE | 2016-11-06 21:39 | NUR ---
TRAFFIC LAW ATTORNEY NOTES SPOKE TO DR CAN WITH ORDER MADE AND CARRIED OUT , AMBIEN 5MG VIA PO Q HS PRN-INSOMIA.
[2016-11-06] MEDS ORDERED: ZOLPIDEM TARTRATE 5 MG TABLET ONE (21:51)
[2016-11-06] MEDS ORDERED: ZOLPIDEM TARTRATE 5 MG TABLET PO PRN (22:00)
[2016-11-07] VITALS: BP 143/72
[2016-11-07 04:00] VITALS: BP 89/58
[2016-11-07] MEDS: HYDROCODONE/APAP 5/325MG 1 EACH TABLET PO PRN (06:50)
--- NOTE | 2016-11-07 07:46 | NUR ---
BARREL DRILLER CLOSING NOTES NO SIGNIFICANT CHANGES OVERNIGHT. ALL NEEDS ANTICIPATED AND MET. NO C/O SOB, SLEPT THROUGH THE NIGHT. NEW HD CATH CLEAN AND DRY. NO BLEEDING NOTED. SKIN WARM AND DRY TO TOUCH. KEPT CLEAN AND DRY. TURNED AND REPOSITIONED Q2 AND PRN. HOB ELEVATED. SIDE RAILS UP AND LOCKED. BED KEPT AT LOWEST POSITION. CALL LIGHT KEPT WITHIN EASY REACH. FOR D/C TODAY. CONTINUITY OF CARE ENDORSED TO AM NURSE.
[2016-11-07 07:47] LABS: HEMATOCRIT 34 % (33-45); HEMOGLOBIN 10.9 g/dL (11.5-14.8); MEAN CORPUSCULAR HEMOGLOBIN 26 PG (26.0-33.0); MEAN CORPUSCULAR HGB CONC 32 g/dl (31.0-36.0); MEAN CORPUSCULAR VOLUME 82 fL (82-100); PLATELET COUNT (AUTO) 122 /CMM (150-450); RDW COEFFICIENT OF VARIATION 19.6 (11.5-15.0); RED BLOOD CELL COUNT(AUTO) 4.17 MIL/uL (4.0-5.2); WHITE BLOOD COUNT (AUTO) 3.5 K/uL (4.3-11.0)
--- NOTE | 2016-11-07 07:47 | NUR ---
RN INITIAL NOTES PT IS SITTING UP IN BED, NO DISTRESS NOTED, A/O X3, ABLE TO MAKE NEEDS KNOWN. DENIES PAIN. TOLERATING ROOM AIR. IV SITES FLUSHED AND INTACT ON R HAND. 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
[2016-11-07 08:00] VITALS: BP 125/78
[2016-11-07 08:10] LABS: BILIRUBIN,TOTAL 0.3 mg/dL (0.2-1.0); CALCIUM, SERUM 8.3 mg/dL (8.5-10.1); CREATININE 6.9 mg/dL (0.6-1.3); MAGNESIUM 2.3 mg/dL (1.8-2.4); PHOSPHORUS 6.8 mg/dL (2.5-4.9); POTASSIUM 3.7 mmol/L (3.5-5.1); TOTAL PROTEIN, SERUM 7.5 g/dL (6.4-8.2)
[2016-11-07 08:14] VITALS: BP 125/78
[2016-11-07] MEDS: MYCOPHENOLATE MOFETIL 250 MG CAPSULE PO SCH (08:30)
[2016-11-07] MEDS: DIVALPROEX SODIUM 125 MG TABLET.DR PO SCH (08:30)
[2016-11-07] MEDS: predniSONE 5 MG TABLET PO SCH (08:30)
[2016-11-07] MEDS: ALLOPURINOL 100 MG TABLET PO SCH (08:30)
[2016-11-07] MEDS: SEVELAMER CARBONATE 800 MG TABLET PO SCH ×2 (08:30→12:53)
[2016-11-07] MEDS: AMLODIPINE BESYLATE 5 MG TABLET PO SCH (08:30)
[2016-11-07] MEDS: ASPIRIN EC 81 MG TABLET.DR PO SCH (08:30)
[2016-11-07] MEDS: NIFEdipine XL (30MG) 30 MG TAB PO SCH (08:30)
[2016-11-07] MEDS: FERROUS SULFATE (325 MG) 325 MG/TAB TABLET PO SCH (08:30)
[2016-11-07] MEDS: VALSARTAN 40 MG TABLET PO SCH (08:31)
[2016-11-07] MEDS: GABAPENTIN 100 MG CAPSULE PO SCH (08:31)
[2016-11-07] MEDS: CHOLECALCIFEROL 1,000 UNIT TABLET (VIT D3) PO SCH (08:31)
[2016-11-07] MEDS: CINACALCET HCL 30 MG TABLET PO SCH (08:31)
[2016-11-07] MEDS: PANTOPRAZOLE 40 MG TABLET.DR PO SCH (08:32)
[2016-11-07] MEDS: HYDROXYCHLOROQUINE 200 MG TABLET PO SCH (08:32)
[2016-11-07] MEDS: VIT B CMPLX 3/FA/VIT C/BIOTIN 1 TAB TABLET PO SCH (08:32)
[2016-11-07] MEDS: CARVEDILOL 12.5 MG TABLET PO SCH (08:32)
[2016-11-07] MEDS: HYDROCODONE/APAP 5/325MG 1 EACH TABLET PO SCH (08:32)
[2016-11-07] MEDS: HEPARIN SODIUM, PORCINE 5000 UNITS/1 ML VIAL SQ SCH (08:33)
[2016-11-07] MEDS ORDERED: HYDROCODONE/APAP 5/325MG 1 EACH TABLET PO PRN (09:00)
[2016-11-07 09:39] LABS: EOSINOPHILS % (MANUAL) 2 % (0-4); LYMPHOCYTES % (MANUAL) 17 % (16-48); MONOCYTES % (MANUAL) 6 % (0-11.0); NEUTROPHILS % (MANUAL) 75 (42-76)
[2016-11-07 12:09] VITALS: BP 83/53
== END 2016-11-07 14:30 | DRG 314 ==
LOC: ER 11:41 → MEDSG1 13:49 → TELE1 14:51
PROVIDERS: ADMIT Internal Medicine Nephrology; ATTEND Internal Medicine Nephrology
PROC: B518YZA Fluoroscopy of Superior Vena Cava using Other Contrast, Guidance (ICD-10-PCS; 2016-11-06)
PROC: 5A1D00Z (ICD-10-PCS; 2016-11-06)
PROC: 02HV33Z Insertion of Infusion Device into Superior Vena Cava, Percutaneous Approach (ICD-10-PCS; principal; 2016-11-06 12:50)
DX: T82.868A Thrombosis due to vascular prosthetic devices, implants and grafts, initial encounter (principal); N18.6 End stage renal disease; E46 Unspecified protein-calorie malnutrition; I12.0 Hypertensive chronic kidney disease with stage 5 chronic kidney disease or end stage renal disease; Y84.9 Medical procedure, unspecified as the cause of abnormal reaction of the patient, or of later complication, without mention of misadventure at the time of the procedure; Y92.129 Unspecified place in nursing home as the place of occurrence of the external cause; D64.9 Anemia, unspecified; E87.5 Hyperkalemia; M10.9 Gout, unspecified; Z79.899 Other long term (current) drug therapy; Z85.3 Personal history of malignant neoplasm of breast; Z99.2 Dependence on renal dialysis; E83.9 Disorder of mineral metabolism, unspecified; M13.80 Other specified arthritis, unspecified site; Z68.28 Body mass index [BMI] 28.0-28.9, adult; Z87.01 Personal history of pneumonia (recurrent); K21.9 Gastro-esophageal reflux disease without esophagitis; Z96.649 Presence of unspecified artificial hip joint; B00.9 Herpesviral infection, unspecified
CPT/HCPCS: 36415; 71010-TC; 80048-TC; 80053-TC; 80076-TC; 82962-TC; 83735-TC; 84100-TC; 85025-TC; 85610-TC; 85730-TC; 86850-TC; 87081-TC; 90935-TC; 93930-TC; A4606; J0690; J1644; J2405; J3010; J3490; J7050; J7060; J7070; J7512; J7517; Q0162; Z7610